=== PATIENT | male | born 1930 | race Caucasian/White ===

== ENCOUNTER 2016-07-19 13:15 | Emergency (ER) | payer OTHER ==
--- NOTE | 2016-07-19 14:02 | ED NURSING NOTES ---
Clinical Report - Nurses [place] [address] [place] [address] 07/19/2016 13:21 Patient: CK VANCE TRIAGE NAMRATA COMA SCORE: [place] Coma Scale: 15- eyes open spontaneously (4); best verbal response- oriented x 4 (5); best motor response- obeys commands (6). --13:39 Jeanna Weinstein R.N. 13:30 07/19/16. BP: 152/86. HR: 74. RR: 18. O2 saturation: 97%. Temp: 98.2 F. Pain level now: 03/03. --13:39 Jeanna Weinstein R.N. Triage time 1330. Chief Complaint: INJURY TO THE LEFT LEG. --15:00 Macarena Esposito R.N. Weight: 77.1 kg stated. Height/Length: 68 inches Per Patient. BMI: 25.9. --13:30 Jeanna Weinstein R.N. Medications Amiodarone HCL Oral (Tablet 200 mg) 1/2 tablet, daily. Coumadin Oral 7.5 mg MWF, then 5 mg on rest of week . Lipitor Oral 10 mg, daily. --13:32 Jeanna Weinstein R.N. Allergies No Known Drug Allergy. --13:31 Jeanna Weinstein R.N. History Arrived by private vehicle. Historian: patient. Accompanied by spouse. Primary physician (jessa jacinto in [place]). This occurred (1200). PAST MEDICAL HX: Tetanus status: unknown. --13:39 Jeanna Weinstein R.N. PAST MEDICAL HX: ( pacemaker, irreg heart rate,). SURGERY HX: Coronary angioplasty. Tonsillectomy. ( skin graft and fracture on left leg 50 years ago). SOCIAL HX: Never smoker. No alcohol use or drug use. --13:51 Macarena Esposito R.N. This occurred (1200). He sustained a laceration from a sharp edge and blunt force. --15:00 Macarena Esposito R.N. PHYSICAL ASSESSMENT 1330. To room via wheelchair. GENERAL / NEURO / PSYCH: Oriented X 4. Alert. Appears in no acute distress. EXTREMITIES: Extremities exhibit normal ROM. Normal gait. Left leg: tenderness and subcutaneous 0.5 cm laceration with controlled bleeding (new lac over old scar tissue from skin graft -). SKIN: Skin is warm and dry. --13:45 Macarena Esposito R.N. NURSING PROGRESS NOTES 13:30. Patient gowned. Reassurance given. Patient identifiers checked. Call light placed in reach. Side rails up. Bed placed in lowest position. Patient ready for evaluation- chart flagged. Care transferred. --13:41 Macarena Esposito R.N. 13:50. WOUND REPAIR: Wound repair performed by FAUSTO. Assisted by [employer] tech. The wound is located on the left leg. The wound is linear. Preparation. Wound cleansed per FAUSTO. Procedure: wound repaired with skin adhesive and steri-strips. Post-procedure: he was stable, bleeding controlled, neuro-vascular status intact distal to wound and dressing applied. Total time of assist / procedure: 15 minutes. --14:02 Macarena Esposito R.N. 14:00. Applied dressing (Non-occlusive dressing secured with coban placed by Hoang riley). --14:56 Macarena Esposito R.N. DISPOSITION / DISCHARGE 14:05. Condition at departure: improved and stable. No learning barriers present. Discharge instructions provided and reviewed with the patient and spouse. Reviewed medication(s) (keep dressing on x 48 hours, follow up with PCP 3 days). Patient and spouse verbalized understanding. Written instructions provided in Jordanian. The patient was discharged home and accompanied by family. He left the Emergency Department ambulatory and via private vehicle. Driving (daughter). --14:58 Macarena Esposito R.N. 14:00 07/19/16. BP: deferred. HR: deferred. RR: deferred. O2 saturation: deferred. Temp: deferred. Pain level now: 03/03. --14:58 Macarena Esposito R.N. Locked/Released at 07/19/2016 15:01 by Macarena Esposito R.N.
--- NOTE | 2016-07-19 14:02 | ED CLINICAL REPORT ---
Clinical Report - Physicians/Mid Levels [facility] [address] [place] [address] 07/19/2016 13:21 [id number] Time Seen: 14:04 Jul 19 2016. Arrived- By private vehicle. HISTORY OF PRESENT ILLNESS Chief Complaint: Injury to left leg. The injury happened just prior to arrival. The patient sustained a crush injury. Occurred at home. Patient is experiencing mild pain. Patient denies injury to the head or neck. (Patient scraped his left lower extremity with a nonmoving chainsaw prior to arrival. Previous injury with tib-fib fracture, and grafting of the skin to the left lower extremity. Denies any bleeding. Patient on Coumadin, last checked on 08 July, 2.1.). REVIEW OF SYSTEMS The patient sustained a laceration. He has no pain on weight bearing. All systems otherwise negative, except as recorded above. PAST HISTORY The patient has had a prior injury to the same area. Tetanus immunization status is up-to-date. Additional Surgeries: Coronary Angioplasty. Tonsillectomy. Medications: Amiodarone HCL Oral (Tablet 200 mg) 1/2 tablet, daily. Coumadin Oral 7.5 mg MWF, then 5 mg on rest of week . Lipitor Oral 10 mg, daily. Allergies: No Known Drug Allergy. SOCIAL HISTORY Never smoker. No alcohol use or drug use. ADDITIONAL NOTES The nursing notes have been reviewed. PHYSICAL EXAM Vital Signs: 07/19/2016 13:30 BP: 152/86. HR: 74. RR: 18. O2 saturation: 97%. Temp: 98.2 F. Pain level now: 10. Appearance: Alert. Head: Head atraumatic. ENT: Ears normal. CVS: Normal heart rate and rhythm. Heart sounds normal. Respiratory: No respiratory distress. Breath sounds normal. Extremities: Left leg. (discoloration of skin, lac 0.5 cm anterior mid tib/ fib, no bleeding, minimal partial thickness). Neuro, Vascular and Tendons: Vascular status intact. Motor intact. Gait: Normal gait. Neuro: Oriented X 3. No motor deficit. No sensory deficit. PROGRESS AND PROCEDURES PROCEDURES (irrigation/ dermabond/ dressing). Course of Care: Nontender left lower shotty with a very small superficial 0.5 cm non-gaping laceration, Dermabond place as well as Steri-Strips. No signs of infectious process, no active bleeding. Full range of motion, good distal sensation. Ambulatory, no concern for fracture. Patient is stable. Patient/family counseled. Disposition: Discharged. CLINICAL IMPRESSION Single superficial laceration. INSTRUCTIONS Elevate affected areas above chest level. (leave dressing in place for 48 hours then leave the white strips in place until they fall off). Follow-up: Follow up with your doctor in three days. (Electronically signed by Annamaria Tinajero P.A.-C 07/19/2016 14:06)
--- NOTE | 2016-07-19 14:02 | ED CLINICAL REPORT ---
Clinical Report - Physicians/Mid Levels [facility] [address] [place] [address] 07/19/2016 13:21 [id number] Time Seen: 14:04 Jul 19 2016. Arrived- By private vehicle. HISTORY OF PRESENT ILLNESS Chief Complaint: Injury to left leg. The injury happened just prior to arrival. The patient sustained a crush injury. Occurred at home. Patient is experiencing mild pain. Patient denies injury to the head or neck. (Patient scraped his left lower extremity with a nonmoving chainsaw prior to arrival. Previous injury with tib-fib fracture, and grafting of the skin to the left lower extremity. Denies any bleeding. Patient on Coumadin, last checked on 08 July, 2.1.). REVIEW OF SYSTEMS The patient sustained a laceration. He has no pain on weight bearing. All systems otherwise negative, except as recorded above. PAST HISTORY The patient has had a prior injury to the same area. Tetanus immunization status is up-to-date. Additional Surgeries: Coronary Angioplasty. Tonsillectomy. Medications: Amiodarone HCL Oral (Tablet 200 mg) 1/2 tablet, daily. Coumadin Oral 7.5 mg MWF, then 5 mg on rest of week . Lipitor Oral 10 mg, daily. Allergies: No Known Drug Allergy. SOCIAL HISTORY Never smoker. No alcohol use or drug use. ADDITIONAL NOTES The nursing notes have been reviewed. PHYSICAL EXAM Vital Signs: 07/19/2016 13:30 BP: 152/86. HR: 74. RR: 18. O2 saturation: 97%. Temp: 98.2 F. Pain level now: 10. Appearance: Alert. Head: Head atraumatic. ENT: Ears normal. CVS: Normal heart rate and rhythm. Heart sounds normal. Respiratory: No respiratory distress. Breath sounds normal. Extremities: Left leg. (discoloration of skin, lac 0.5 cm anterior mid tib/ fib, no bleeding, minimal partial thickness). Neuro, Vascular and Tendons: Vascular status intact. Motor intact. Gait: Normal gait. Neuro: Oriented X 3. No motor deficit. No sensory deficit. PROGRESS AND PROCEDURES PROCEDURES (irrigation/ dermabond/ dressing). Course of Care: Nontender left lower shotty with a very small superficial 0.5 cm non-gaping laceration, Dermabond place as well as Steri-Strips. No signs of infectious process, no active bleeding. Full range of motion, good distal sensation. Ambulatory, no concern for fracture. Patient is stable. Patient/family counseled. Disposition: Discharged. CLINICAL IMPRESSION Single superficial laceration. INSTRUCTIONS Elevate affected areas above chest level. (leave dressing in place for 48 hours then leave the white strips in place until they fall off). Follow-up: Follow up with your doctor in three days. (Electronically signed by Annamaria Tinajero P.A.-C 07/19/2016 14:06)
--- NOTE | 2016-07-19 14:02 | ED NURSING NOTES ---
Clinical Report - Nurses [place] [address] [place] [address] 07/19/2016 13:21 Patient: CK VANCE TRIAGE NAMRATA COMA SCORE: [place] Coma Scale: 15- eyes open spontaneously (4); best verbal response- oriented x 4 (5); best motor response- obeys commands (6). --13:39 Jeanna Weinstein R.N. 13:30 07/19/16. BP: 152/86. HR: 74. RR: 18. O2 saturation: 97%. Temp: 98.2 F. Pain level now: 03/03. --13:39 Jeanna Weinstein R.N. Triage time 1330. Chief Complaint: INJURY TO THE LEFT LEG. --15:00 Macarena Esposito R.N. Weight: 77.1 kg stated. Height/Length: 68 inches Per Patient. BMI: 25.9. --13:30 Jeanna Weinstein R.N. Medications Amiodarone HCL Oral (Tablet 200 mg) 1/2 tablet, daily. Coumadin Oral 7.5 mg MWF, then 5 mg on rest of week . Lipitor Oral 10 mg, daily. --13:32 Jeanna Weinstein R.N. Allergies No Known Drug Allergy. --13:31 Jeanna Weinstein R.N. History Arrived by private vehicle. Historian: patient. Accompanied by spouse. Primary physician (jessa jacinto in [place]). This occurred (1200). PAST MEDICAL HX: Tetanus status: unknown. --13:39 Jeanna Weinstein R.N. PAST MEDICAL HX: ( pacemaker, irreg heart rate,). SURGERY HX: Coronary angioplasty. Tonsillectomy. ( skin graft and fracture on left leg 50 years ago). SOCIAL HX: Never smoker. No alcohol use or drug use. --13:51 Macarena Esposito R.N. This occurred (1200). He sustained a laceration from a sharp edge and blunt force. --15:00 Macarena Esposito R.N. PHYSICAL ASSESSMENT 1330. To room via wheelchair. GENERAL / NEURO / PSYCH: Oriented X 4. Alert. Appears in no acute distress. EXTREMITIES: Extremities exhibit normal ROM. Normal gait. Left leg: tenderness and subcutaneous 0.5 cm laceration with controlled bleeding (new lac over old scar tissue from skin graft -). SKIN: Skin is warm and dry. --13:45 Macarena Esposito R.N. NURSING PROGRESS NOTES 13:30. Patient gowned. Reassurance given. Patient identifiers checked. Call light placed in reach. Side rails up. Bed placed in lowest position. Patient ready for evaluation- chart flagged. Care transferred. --13:41 Macarena Esposito R.N. 13:50. WOUND REPAIR: Wound repair performed by FAUSTO. Assisted by [facility] tech. The wound is located on the left leg. The wound is linear. Preparation. Wound cleansed per FAUSTO. Procedure: wound repaired with skin adhesive and steri-strips. Post-procedure: he was stable, bleeding controlled, neuro-vascular status intact distal to wound and dressing applied. Total time of assist / procedure: 15 minutes. --14:02 Macarena Esposito R.N. 14:00. Applied dressing (Non-occlusive dressing secured with coban placed by Hoang riley). --14:56 Macarena Esposito R.N. DISPOSITION / DISCHARGE 14:05. Condition at departure: improved and stable. No learning barriers present. Discharge instructions provided and reviewed with the patient and spouse. Reviewed medication(s) (keep dressing on x 48 hours, follow up with PCP 3 days). Patient and spouse verbalized understanding. Written instructions provided in Latvian. The patient was discharged home and accompanied by family. He left the Emergency Department ambulatory and via private vehicle. Driving (daughter). --14:58 Macarena Esposito R.N. 14:00 07/19/16. BP: deferred. HR: deferred. RR: deferred. O2 saturation: deferred. Temp: deferred. Pain level now: 03/03. --14:58 Macarena Esposito R.N. Locked/Released at 07/19/2016 15:01 by Macarena Esposito R.N.
--- NOTE | 2016-07-19 15:01 | ED DISCHARGE INSTRUCTIONS ---
Patient: CK VANCE General Instructions [facility] VisitID: [id number] [place] [address] 86y, M Registration Date/Time: 07/19/2016 Single superficial laceration. INSTRUCTIONS Elevate affected areas above chest level. (leave dressing in place for 48 hours then leave the white strips in place until they fall off). Follow-up: Follow up with your doctor in three days. ADDITIONAL INFORMATION Laceration(Skin Glue) A laceration is a cut through the skin. You have a laceration that has been closed with a type of skin glue. Home Care Medications: Acetaminophen (Tylenol) or ibuprofen (Motrin, Advil) may be taken for pain, unless another pain medicine was prescribed. NOTE: If you have chronic liver or kidney disease or ever had a stomach ulcer or GI bleeding, talk with your doctor before using these medications. General Care: Keep the wound clean and dry. You may shower or bathe as usual, but do not use soaps, lotions, or ointments on the wound area. Do not scrub the wound. After bathing, pat the wound dry with a soft towel. If a bandage was applied and it becomes wet or dirty, replace it. Otherwise, change the bandage every 24 hours. Do not scratch, rub, or pick at the film. Do not place tape directly over the film. Do not apply liquids (such as peroxide), ointments, or creams to the wound while the film is in place. Most skin wounds heal without problems. However, an infection sometimes occurs despite proper treatment. Therefore, watch for the signs of infection listed below. Follow Up as directed by the doctor or our staff. The skin glue film will fall off naturally in 5 to 10 days. Get Prompt Medical Attention if any of the following occur: Signs of infection: Fever of 100.4F (38C) or higher, or as directed by your healthcare provider Increasing pain in the wound Increasing redness or swelling Pus coming from the wound Wound bleeds more than a small amount or bleeding doesnt stop Wound edges come apart You feel numbness or weakness in the wound area that doesnt go away You have been given the following additional information: Laceration, Extremity (Skin Glue) (Electronically signed by KoroleAnnamaria felipe P.A.-C 07/19/2016 14:06)
--- NOTE | 2016-07-19 15:01 | ED MED RECONCILIATION SUMMARY ---
Patient: CK VANCE Medication Reconciliation Report [facility] VisitID: [id number] [address] [place] [address] 86y, M Registration Date/Time: 07/19/2016 Weight: 77.1 kg Height/Length: 68 in. BMI: 25.9 ALLERGIES: No Known Drug Allergy The patient's Home Medications are listed below: THE FOLLOWING MEDICATIONS NEED TO BE RECONCILED: Amiodarone HCL Oral (200 mg) 1/2 tablet, daily Coumadin Oral 7.5 mg MWF, then 5 mg on rest of week Lipitor Oral 10 mg, daily The source(s) of the original Home Medication information: Not obtained. The following Medications were given to the patient in the Emergency Department: None. The following Medications were prescribed to the patient: None.
--- NOTE | 2016-07-19 15:01 | ED MED RECONCILIATION SUMMARY ---
Patient: CK VANCE Medication Reconciliation Report [facility] VisitID: [id number] [address] [place] [address] 86y, M Registration Date/Time: 07/19/2016 Weight: 77.1 kg Height/Length: 68 in. BMI: 25.9 ALLERGIES: No Known Drug Allergy The patient's Home Medications are listed below: THE FOLLOWING MEDICATIONS NEED TO BE RECONCILED: Amiodarone HCL Oral (200 mg) 1/2 tablet, daily Coumadin Oral 7.5 mg MWF, then 5 mg on rest of week Lipitor Oral 10 mg, daily The source(s) of the original Home Medication information: Not obtained. The following Medications were given to the patient in the Emergency Department: None. The following Medications were prescribed to the patient: None.
--- NOTE | 2016-07-19 15:01 | ED MAR SUMMARY ---
..... Medication Administration Record [facility] [address] [place], [place] [id number] Patient: CK VANCE Visit ID: [id number] 86y, M Weight: 77.1 kg Height/Length: 68 in BMI: 25.9 ALLERGIES: No Known Drug Allergy
--- NOTE | 2016-07-19 15:01 | ED MAR SUMMARY ---
..... Medication Administration Record [facility] [address] [place], [place] [id number] Patient: CK VANCE Visit ID: [id number] 86y, M Weight: 77.1 kg Height/Length: 68 in BMI: 25.9 ALLERGIES: No Known Drug Allergy
== END 2016-07-19 14:05 | disposition home or self-care (01) ==
LOC: ED SRH 13:15
DX: S81.812A Laceration without foreign body, left lower leg, initial encounter (principal); W45.8XXA Other foreign body or object entering through skin, initial encounter; W27.8XXA Contact with other nonpowered hand tool, initial encounter; Y93.9 Activity, unspecified; Y99.9 Unspecified external cause status; Y92.009 Unspecified place in unspecified non-institutional (private) residence as the place of occurrence of the external cause; Z98.61 Coronary angioplasty status; Z79.899 Other long term (current) drug therapy; Z79.01 Long term (current) use of anticoagulants
CPT/HCPCS: 82708